=== PATIENT | female | born 1970 | race Two or more races ===

== ENCOUNTER 2018-05-11 13:14 | Emergency (ER) | payer OTHER ==
[~2018-05-11] VITALS: Ht 149.9 cm; Wt 59.0 kg
[2018-05-11 13:16] VITALS: BP 136/76
[2018-05-11] MEDS ORDERED: KETOROLAC TROMETH 60MG/2ML VIAL IM ONE (14:00)
== END 2018-05-11 15:42 | disposition left against medical advice (07) ==
LOC: ER 13:14 → EDUNIT# 13:14 → ER 15:42
DX: M54.2 Cervicalgia (principal); E11.9 Type 2 diabetes mellitus without complications; V43.62XA Car passenger injured in collision with other type car in traffic accident, initial encounter; Y93.89 Activity, other specified; Y92.89 Other specified places as the place of occurrence of the external cause; Y99.8 Other external cause status
CPT/HCPCS: 72125; 82962; J1885; 81002